=== PATIENT | female | born 1950 | race Caucasian/White ===

== ENCOUNTER 2020-06-18 07:13 | Outpatient (CLI) | payer MEDICARE, SELFPAY ==
--- NOTE | ~2020-06-18 | MM_ITS ---
EXAMINATION: MM screening sis BI w julian HISTORY: Screening TECHNIQUE: Craniocaudal and mediolateral oblique 3-D tomosynthesis images were obtained and synthetic 2-D images were generated. CAD analysis was submitted and interpreted. COMPARISON: Comparison to multiple prior studies sequentially, with oldest reviewed study dated 04/26. BREAST PARENCHYMAL COMPOSITION: There are scattered areas of fibroglandular density. FINDINGS: There is no evidence of suspicious mass, calcification, or architectural distortion to sugg est malignancy in either breast. There has been no suspicious interval change. IMPRESSION: 1. No mammographic evidence of malignancy. 2. Recommend routine screening mammography in one year. BI-RADS Category 1: Negative Reviewed, dictated and finalized at location A.
== END 2020-06-18 07:14 | disposition home or self-care (01) ==
LOC: ANHIMG 07:22
PROVIDERS: PCP Internal Medicine; Visit Provider Internal Medicine
DX: Z12.31 Encounter for screening mammogram for malignant neoplasm of breast (principal)
CPT/HCPCS: 77063; 77067

== ENCOUNTER 2021-06-18 07:59 | Outpatient (CLI) | payer MEDICARE, SELFPAY ==
--- NOTE | ~2021-06-18 | MM_ITS ---
EXAMINATION: MM screening sis BI w julian HISTORY: Screening TECHNIQUE: Craniocaudal and mediolateral oblique 3-D tomosynthesis images were obtained and synthetic 2-D images were generated. CAD analysis was submitted and interpreted. COMPARISON: Comparison to multiple prior studies sequentially, with oldest reviewed study dated 04/26. BREAST PARENCHYMAL COMPOSITION: There are scattered areas of fibroglandular density. FINDINGS: There is no evidence of suspicious mass, calcification, or architectural distortion to sugg est malignancy in either breast. There has been no suspicious interval change. IMPRESSION: 1. No mammographic evidence of malignancy. 2. Recommend routine screening mammography in one year. BI-RADS Category 1: Negative Reviewed, dictated and finalized at location A.
== END 2021-06-18 08:00 | disposition home or self-care (01) ==
LOC: ANHIMG 08:01
PROVIDERS: PCP Internal Medicine; Visit Provider Internal Medicine
DX: Z12.31 Encounter for screening mammogram for malignant neoplasm of breast (principal)
CPT/HCPCS: 77063; 77067

== ENCOUNTER 2022-06-30 09:18 | Outpatient (CLI) | payer MEDICARE, SELFPAY ==
--- NOTE | ~2022-06-30 | MM_ITS ---
EXAMINATION: MM screening sis BI w julian HISTORY: Screening mammogram TECHNIQUE: Craniocaudal and mediolateral oblique 3-D tomosynthesis images were obtained and synthetic 2-D images were generated. CAD analysis was submitted and interpreted. COMPARISON: 06/18/2021, 06/18/2020, 05/31/2019 bilateral screening mammogram examinations BREAST PARENCHYMAL COMPOSITION: There are scattered areas of fibroglandular density. FINDINGS: There is no evidence of suspicious mass, calcification, or architectural distortion to sugg est malignancy in either breast. There has been no suspicious interval change. IMPRESSION: 1. No mammographic evidence of malignancy. 2. Recommend routine screening mammography in one year. BI-RADS Category 1: Negative Reviewed, dictated and finalized at location A.
== END 2022-06-30 09:19 | disposition home or self-care (01) ==
LOC: ANHIMG 09:20
PROVIDERS: PCP Internal Medicine; Visit Provider Internal Medicine
DX: Z12.31 Encounter for screening mammogram for malignant neoplasm of breast (principal)
CPT/HCPCS: 77063; 77067

== ENCOUNTER 2023-08-17 13:09 | Outpatient (CLI) | payer MEDICARE, SELFPAY ==
--- NOTE | ~2023-08-17 | MM_ITS ---
EXAMINATION: MM screening [facility] BI w julian HISTORY: Screening mammogram TECHNIQUE: Craniocaudal and mediolateral oblique 3-D tomosynthesis images were obtained and synthetic 2-D images were generated. CAD analysis was submitted and interpreted. COMPARISON: 06/30/2022, 06/18/2021, 06/18/2020 BREAST PARENCHYMAL COMPOSITION: There are scattered areas of fibroglandular density. FINDINGS: No suspicious mass, calcification, or architectural distortion are identified in either jaime ast to suggest malignancy. There has been no suspicious interval change. IMPRESSION: 1. No mammographic evidence of malignancy. 2. Recommend routine screening mammography in one year. BI-RADS Category 1: Negative Reviewed, dictated and finalized at location A.
== END 2023-08-17 13:10 | disposition home or self-care (01) ==
PROVIDERS: PCP Internal Medicine; Visit Provider Internal Medicine
DX: Z12.31 Encounter for screening mammogram for malignant neoplasm of breast (principal)
CPT/HCPCS: 77063; 77067

== ENCOUNTER 2024-08-22 07:52 | Outpatient (CLI) | payer MEDICARE, SELFPAY ==
--- NOTE | ~2024-08-22 | MM_ITS ---
EXAMINATION: MM screening sis BI w julian HISTORY: Screening TECHNIQUE: Craniocaudal and mediolateral oblique 3-D tomosynthesis images were obtained and synthetic 2-D images were generated. CAD analysis was submitted and interpreted. COMPARISON: Comparison to multiple prior studies sequentially, with oldest reviewed study dated 07/2018. BREAST PARENCHYMAL COMPOSITION: Not dense: There are scattered areas of fibroglandular density. FINDINGS: There is a new focal asymmetry in the subareolar location of the left breast on CC view. Th e right breast is stable. IMPRESSION: 1. New focal left breast asymmetry. 2. Additional mammographic views and possible breast ultrasound are recommended. BI-RADS Category 0: Incomplete: Needs additional imaging evaluation. Reviewed, dictated and finalized at location B. IMPRESSION: 1. New focal left breast asymmetry. 2. Additional mammographic views and possible breast ultrasound are recommended . BI-RADS Category 0: Incomplete: Needs additional imaging evaluation.
== END 2024-08-22 07:53 | disposition home or self-care (01) ==
LOC: ANHIMG 07:53
PROVIDERS: PCP Internal Medicine; Visit Provider Internal Medicine
DX: Z12.31 Encounter for screening mammogram for malignant neoplasm of breast (principal); R92.8 Other abnormal and inconclusive findings on diagnostic imaging of breast
CPT/HCPCS: 77063; 77067

== ENCOUNTER 2024-09-11 10:11 | Outpatient (CLI) | payer MEDICARE, SELFPAY ==
--- NOTE | ~2024-09-11 | MM_ITS ---
EXAMINATION: MM diagnostic sis LT w julian HISTORY: Left breast asymmetry TECHNIQUE: Additional 3-D tomosynthesis images of the left breast were performed and synthetic 2-D im ages were generated. CAD analysis was submitted and interpreted. COMPARISON: 08/22/2024 BREAST PARENCHYMAL COMPOSITION:Not Dense. There are scattered areas of fibroglandular density. FINDINGS: The asymmetry effaces with spot compression. No persistent mass lesion or distortion seen. No suspicious microcalcification. IMPRESSION: No mammographic evidence for malignancy. BI-RADS Category 1: Negative Reviewed, dictated and finalized at location .
== END 2024-09-11 10:12 | disposition home or self-care (01) ==
LOC: ANHIMG 10:13
PROVIDERS: PCP Internal Medicine; Visit Provider Internal Medicine
DX: R92.8 Other abnormal and inconclusive findings on diagnostic imaging of breast (principal)
CPT/HCPCS: 77061; 77065; G0279

== ENCOUNTER 2025-08-27 07:44 | Outpatient (CLI) | payer MEDICARE, SELFPAY ==
--- NOTE | ~2025-08-27 | MM_ITS ---
EXAMINATION: MM screening sis BI w julian HISTORY: Screening TECHNIQUE: Craniocaudal and mediolateral oblique 3-D tomosynthesis images were obtained and synthetic 2-D images were generated. CAD analysis was submitted and interpreted. COMPARISON: 08/17/2023 BREAST PARENCHYMAL COMPOSITION: The breasts are heterogeneously dense, which may obscure small masses. FINDINGS: There is no evidence of suspicious mass, calcification, or architectural distortion to suggest malignancy. There has been no suspicious interval change. IMPRESSION: 1. No mammographic evidence of malignancy. Recommend routine screening mammography in one year. BI-RADS Category 2: Benign finding(s) Reviewed, dictated and finalized at location Q. IMPRESSION: 1. No mammographic evidence of malignancy. Recommend routine screening mammogra phy in one year. BI-RADS Category 2: Benign finding(s)
--- OUTSIDE RECORDS SUMMARY | 2025-08-27 07:49 | XMS_ITS | Encounter Summary ---
Author Organization [facility] Healthcare Address [address] [place] [address] Care Team Providers Care Pool Nurse Name Role Phone Aziza Benton MD Primary Care Provider + [phone] Reji Sarabia OD Unavailable [phone] Samantha Kyle MD Unavailable [phone] Mike Garcia MD Unavailable Domingo Diana MD Unavailable [phone] Parisa Lyn MD Unavailable [phone] Encounter Details Date Type Department Care Team (Late st Contact Info) Description 04/05/2025 Orders Only [facility] Health Information Management [address] [place] [id number] Scanning, Provider Social History Tobacco Use Types Packs/Day Years Used Date Smoking Tobacco: Never Cigarettes Smokeless Tobacco: Never Alcohol Use Standard Drinks/Week Comments Not Currently 0 (1 standard drink = 0.6 oz pur e alcohol) Social Connection and Isolation Panel Answer Date Recorded In a typical week, how many times do you talk on the phone with family, friends, or neighbors? More than three times a week 03/10/2022 How often do you get togethe r with friends or relatives? More than three times a week 03/10/2022 How often do you attend chur or amish services? More than 4 times per year 03/10/2022 Do you belong to any clubs o r organizations such as catholic groups, unions, fraternal or athletic groups, or school groups? No 03/10/2022 How often do you attend meet ings of the clubs or organizations you belong to? Never 03/10/2022 Are you , , di vorced, , never , or living with a partner? 03/10/2022 AUDIT-C Answer Date Recorded Frequency of Alcohol Consumption Not on file 08/17/2024 Q2: How many drinks containi ng alcohol do you have on a typical day when you are drinking? 1 or 2 08/17/2024 Q3: How often do you have si x or more drinks on one occasion? Less than monthly 08/17/2024 Overall Financial Resource Strain (CARDIA) Answe r Date Recorded How hard is it for you to pa y for the very basics like food, housing, medical care, and heating? Not hard at all 03/10/2022 PHQ-2 Answer Date Recorded PHQ-2 Total Score (If total score is 3 or more points, staff should administer the PHQ-9) 0 10/04/2024 PRAPARE - Transportation Answer Date Re corded In the past 12 months, has l ack of transportation kept you from medical appointments or from getting medications? No 02/14 In the past 12 months, has l ack of transportation kept you from meetings, work, or from getting things needed for daily living? No 03/10/2022 Personal Safety Answer Date Recorded Have you ever been in or are you currently in a harmful physical or emotional relationship or is someone making you feel afraid or unsafe? Denies 11/30/2023 Comments No Sex and Gender Information Value Date Recorded Sex Assigned at Not on file Legal Sex Female 7:15 PM CDT Gender Identity Not on file Sexual Orientation Not on file documented as of this encounter Plan of Treatment Not on file documented as of this encounter Procedures Procedure Name Priority Date/Time Associated Diagnosis Comments SCAN - LABS 04/05/2025 documented in this encounter Results * SCAN - LABS (04/05/2025) us Provider Scanning Final Result documented in this encounter Visit Diagnoses Not on filedocumented in this encounter Care Teams Pool Nurse Relationship Specialty Start Date End Date Aziza Benton MD [address] [place] [id number] PCP - General Internal Medicine 02/07/19 Reji Sarabia OD [address] [place] [id number] Optometry 07/20/19 [place] [id number] [address] [place] [address] Surgeon Colon and Rectal Surgery 03/13/22 [place] [id number] [address] [facility] [address] [place] [address] Consulting Physician Gastroenterology 09/14/23 [place] [id number] [address] [place] [address] Consulting Physician Oncology 09/14/23 Parisa Lyn MD [address] [place] [id number] Consulting Physician Obstetrics and Gynecology 09/14/23 documented as of this encounter
--- OUTSIDE RECORDS SUMMARY | 2025-08-27 07:49 | XMS_ITS | Clinical Summary ---
Author Organization [facility] Address [address] [place] [id number] Care Team Providers Care Turbine Attendant Name Role Phone Unavailable Primary Care Provider Unavailabl e Social History Tobacco Use Types Packs/Day Years Used Date Smoking Tobacco: Never Assessed Comments Unknown Sex and Gender Information Value Date Recorded Sex Assigned at Not on file Legal Sex Female 7:06 PM CDT Gender Identity Not on file Sexual Orientation Not on file Plan of Treatment Health Maintenance Due Date Last Done Comments Colorectal Cancer Screening Colonoscopy (10 Years) 1952 Hepatitis C 1970 DTaP, Tdap and Td Vaccines ( 1 - Tdap) 1971 Mammogram Screening 1992 Pneumococcal Vaccine: 50+ Ye ars (1 of 1 - PCV) 2002 Zoster Vaccines (1 of 2) 2002 Dexa Scan (General) 2017 COVID-19 Vaccine ( - 2023-2 5 season) 2025 Influenza Adult (#1) 2025 RSV Immunization or 60+ Years (1 - 1-dose 75+ series) 2027 Meningococcal B Vaccine Aged Out No l onger eligible based on patient's age to complete this topic Meningococcal Vaccine Aged Out No erica mitchell eligible based on patient's age to complete this topic RSV Immunizations Under 20 Months Aged Out No longer eligible based on patient's age to complete this topic
--- OUTSIDE RECORDS SUMMARY | 2025-08-27 07:50 | XMS_ITS | Clinical Summary ---
Author Organization [facility] at the [facility] Office Center Address [address] [place] [address] Care Team Providers Care Conciliation Court Judge Name Role Phone Rocio Benton MD Primary Care Provider + [phone] Reji Sarabia OD Unavailable [phone] Samantha Kyle MD Unavailable [phone] Mike Garcia MD Unavailable Domingo Diana MD Unavailable [phone] Parisa Lyn MD Unavailable Allergies Active Allergy Reactions Criticality Noted Date Comments Iodine Rash Medium 07/18/2019 rash Iodinated Contrast Media Rash Medium 03/02/2022 Sulfa (Sulfonamide Antibiotics) Rash Medium 05/16 rash Medications calcium carb/vitamin D3/vit K1 (VIACTIV ORAL) daily Activ e cholecalciferol (VITAMIN D-3) 2000 unit capsule 1 capsule (2,000 Units total) daily Active multivitamin tablet,chewable Take 1 tablet by mouth daily Active ascorbic acid (VITAMIN C) 1,000 mg tablet Take 1 tablet (1,000 mg total) by mouth daily Active lisinopril-hydroC HLOROthiazide (ZESTORETIC) 10-12.5 mg per tabletIndications :Essential hypertension Take 1 tablet by mouth daily 90 tablet 3 5 Active Active Problems Problem Noted Date Diagnosed Date Asymptomatic varicose veins of both lower extrem ities 03/04/2023 Assessment & Plan (03/04/2023 8:52 AM CDT): Wear compression stockings regularly for prevention Keep walking regularly Status post partial colectomy 09/30/2022 Overview (03/16/2024): 2021 polypoid lesion of the colon. Around the appendiceal orifice. Status post right- sided hemicolectomy. Following up with Oncology. Doing well. 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 A CT scan was done and it showed within the cecum, there is a apparent 2.7 x 3.2 cm mass, which appears to extend into the proximal appendix. Right lower quadrant lymphadenopathy is demonstrated with largest lymph node measuring approximately 1.2 cm and also an Enhancing 1.9 x 1.0 cm right hepatic lobe lesion may represent focus of metastatic disease. On 03/09/22 she underwent a right segmental colectomy and pathology was positive for marginal zone lymphoma, involving the colon and pericolonic lymph node. Dr Cindy Hebert, GI polypoid lesion of the colon. Around the appendiceal orifice. Status post right- sided hemicolectomy. Following up with Oncology. Doing well. Assessment & Plan (03/17/2024 8:50 AM CDT): S/p lap colectomy In Cecum, also appendectomy done at same time 01/07/22 for MALT NH Lymphoma Dr Mohan No chemo needed per Oncology Dr Giang (moved away) Dong well Cont under Oncology, Dr Domingo Diana Assessment & Plan (03/16/2024 9:34 PM CDT): >>ASSESSMENT AND PLAN FOR COLONIC MASS WRITTEN ON 03/16/2024 9:32 PM BY ROCIO BENTON MD >>ASSESSMENT AND PLAN FOR LESION OF COLON WRITTEN ON 01/21/2022 11:14 AM BY LORA HEBERT MD -polypoid lesion of the colon. Around the appendiceal orifice. Discuss the pathology report with her in detail. Per the pathologist here at [facility], it was noted to be suspicious of B-cell lymphoma. It was further since a [facility] for expert opinion, where it was assessed to be mixed infiltrate. I did discuss it with the pathologist on multiple occasions in detail. Per per the combined consents is we will obtain a CT chest abdomen pelvis for evaluation for possibility lymphoid tumor. I will see her in 6 months and schedule her for repeat colonoscopy for re- evaluation of the lesion if the CT chest abdomen pelvis are unremarkable. Assessment & Plan (03/16/2024 9:34 PM CDT): >>ASSESSMENT AND PLAN FOR COLONIC MASS WRITTEN ON 09/30/2022 11:30 AM BY LORA HEBERT MD -polypoid lesion of the colon. Around the appendiceal orifice. Status post right-sided hemicolectomy. Following up with Oncology. Doing well. Counseled on effects of right hemicolectomy. All her questions answered to her satisfaction. I will see her in 6 months and schedule her for repeat colonoscopy for follow- up. Assessment & Plan (09/14/2023 8:41 AM CDT): Stable S/p lap colectomy In Cecum, also appendectomy done at same time 01/07/[address] Mohan No chemo needed per Oncology Dr Giang She underwent colonoscopy on and biopsy from a cecal mass (3.5 cm) was suspicious for a B-Cell Lymphoma. A CT scan was done and it showed within the cecum, there is a apparent 2.7 x 3.2 cm mass, which appears to extend into the proximal appendix. Right lower quadrant lymphadenopathy is demonstrated with largest lymph node measuring approximately 1.2 cm and also an Enhancing 1.9 x 1.0 cm right hepatic lobe lesion may represent focus of metastatic disease. On 03/09/22 she underwent a right segmental colectomy and pathology was positive for marginal zone lymphoma, involving the colon and pericolonic lymph node. BMI 28.0-28.9,adult 02/19/2021 Assessment & Plan (03/04/2023 8:52 AM CDT): Cont wt loss and walking Cont healthy diet and lifestyle Assessment & Plan (08/27/2021 10:37 AM CDT): Intermittent fasting Assessment & Plan (02/19/2021 10:16 AM CDT): Overweight Work on weight loss Family history of thyroid disease 02/19/2021 Overview (02/19/2021): 2 dtrs on thyroid meds Assessment & Plan (02/19/2021 10:20 AM CDT): Monitor TSH levels once yrly Both dtrs have thyroid disease Acute pain of right knee 08/21/2020 Assessment & Plan (10/11/2024 8:56 AM FRONTEND ENGINEER): New and worsening Might need PT if not better Start with Knee exercises Assessment & Plan (08/21/2020 1:41 PM CDT): Knee strengthening exercises, printed Family history of ovarian cancer 08/21/2020 Overview (08/21/2020): sister Assessment & Plan (08/21/2020 1:52 PM CDT): Patient to inquire with her sister's [employer] Medicare annual wellness visit, subsequent 07/20 Assessment & Plan (10/11/2024 8:40 AM FRONTEND ENGINEER): Reviewed previous labs and diagnostic test results. Chronic medical problems evaluated and management plans discussed with the patient. Prescription medications, supplements, vitamins and immunizations reviewed. Wear seatbelts. Use sunscreen. Discussed healthy diet and disease prevention. Recommend moving towards a plant based diet. Discussed importance of scheduling recommended screening tests. Discussed importance of regular physical examinations for health maintenance. Assessment & Plan (09/14/2023 8:42 AM CDT): Patient at risk for falls due to age and co morbidities. Fall prevention discussed c patient in detail. Exercises for balance and coordination, keep LE muslces toned and strong. Assessment & Plan (08/27/2022 9:59 AM CDT): Patient at risk for falls due to age and co morbidities. Fall prevention discussed c patient in detail. Exercises for balance and coordination, keep LE muslces toned and strong. Assessment & Plan (08/27/2021 10:09 AM CDT): Reviewed previous labs and diagnostic test results. Chronic medical problems evaluated and management plans discussed with the patient. Prescription medications, supplements, vitamins and immunizations reviewed. Wear seatbelts. Use sunscreen. Discussed healthy diet and disease prevention. Recommend moving towards a plant based diet. Discussed importance of scheduling recommended screening tests. Discussed importance of regular physical examinations for health maintenance. Discussed importance of a living will, advanced directives and establishing or updating healthcare power of environmental attorney document and providing our office with a copy. Assessment & Plan (02/19/2021 10:10 AM CDT): Overweight Work on wt loss Avoid sugar or sugar substitutes Assessment & Plan (08/21/2020 12:51 PM CDT): Wear sunscreen with SPF over 50 while outdoors. Wear sun protective head wear and clothing if planning to stay outdoors exposed to the direct sunlight for extended hours. Wear seatbelts while in a vehicle. Do not TEXT and DRIVE Do not DRINK and DRIVE. Drink responsibly Follow a heart healthy diet and lifestyle. Consume 5-7 servings of fruits and vegetables a day.. Such as the Mediterranean Diet. Maintain/attain normal body weight. Exercise regularly, minimum 20 mins 3 days a week to reduce cardiovascular healthy. Maintain good sleep schedule and sleep habits I recommend that all patients follow a diet that is high in fruits and vegetables and low in processed foods such as sugar and foods that are made with white flour. I recommend using beneficial fats such as olive oil, nuts, seeds and berries and avoiding saturated animal fats. Please stay physically active to the extent that you are physically able to. Test results: if you have not received communication about test results within 7 days of the test being performed, please contact the office. I strongly encourage Pricing Assistanthart sign ups. It can facilitate communication flow. Please contact the office for instructions on signing up. Consider getting Shingrix (shingles vaccine). This is a 2-shot series with each injection given 2-6 months apart. You can obtain the vaccine at most major pharmacies without a prescription Assessment & Plan (07/20/2019 11:52 AM CDT): Get a living will and establish health care POA Wear sunscreen while outdoors. Wear seatbelts while in a vehicle. Do not text and drive. Follow a heart healthy diet and lifestyle. Consume 5-7 servings of fruits and vegetables a day. Maintain/attain normal body weight. Maintain good sleep schedule and sleep habits. I recommend that all patients follow a diet that is high in fruits and vegetables and low in processed foods such as sugar and foods that are made with white flour. I recommend using beneficial fats such as olive oil, nuts, seeds and berries and avoiding saturated animal fats. Please stay physically active to the extent that you are able. Test results: if you have not received communication about test results within 7 days of the test being performed, please contact the office. Consider getting Shingrix (shingles vaccine). This is a 2-shot series with each injection given 2-6 months apart. You can obtain the vaccine at most major pharmacies without a prescription Risk for falls 07/20/2019 Assessment & Plan (10/11/2024 8:40 AM FRONTEND ENGINEER): Patient at risk for falls due to age and co morbidities. Fall prevention discussed c patient in detail. Exercises for balance and coordination, keep LE muslces toned and strong. Assessment & Plan (09/14/2023 8:42 AM CDT): Patient at risk for falls due to age and co morbidities. Fall prevention discussed c patient in detail. Exercises for balance and coordination, keep LE muslces toned and strong. Assessment & Plan (08/27/2022 10:00 AM CDT): Patient at risk for falls due to age and co morbidities. Fall prevention discussed c patient in detail. Exercises for balance and coordination, keep LE muslces toned and strong. Assessment & Plan (08/27/2021 10:09 AM CDT): Patient at risk for falls due to age and co morbidities. Fall prevention discussed c patient in detail. Exercises for balance and coordination, keep LE muslces toned and strong. Assessment & Plan (08/21/2020 1:40 PM CDT): Patient at risk for falls due to age and co morbidities. Fall prevention discussed c patient in detail. Exercises for balance and coordination, keep LE muslces toned and strong. Core strengthening exercises Assessment & Plan (07/20/2019 11:30 AM CDT): Patient at risk for falls due to age and co morbidities. Fall prevention discussed c patient in detail. Exercises for balance and coordination, keep LE muslces toned and strong. Abnormal glucose 07/20/2019 Overview (10/11/2024): A1c 5.22 January 2020 a1c 6.January a1c 5.23 Aug 2022 a1c 5.19 Feb 2023 A1c 5.21 Aug 2023 A1c 6.15 Mar 2024 A1c 6.15 Sep 2024 Assessment & Plan (10/11/2024 8:51 AM FRONTEND ENGINEER): Trying to make improvements with walking and better food choices At risk for Dm A1c remains in pre dm range Lose more weight Ff diabetic diet Cont to trend A1c 5.22 January 2020 a1c 6.January a1c 5.23 Aug 2022 a1c 5.19 Feb 2023 A1c 5.21 Aug 2023 A1c 6.15 Mar 2024 A1c 6.15 Sep 2024 Stable, still in pre DM, at risk Assessment & Plan (03/16/2024 9:30 PM CDT): Trying to make improvements with walking and better food choices At risk for Dm A1c remains in pre dm range Lose more weight Ff diabetic diet Cont to trend A1c 5.22 January 2020 a1c 6.January a1c 5.23 Aug 2022 a1c 5.19 Feb 2023 A1c 5.21 Aug 2023 A1c 6.15 Mar 2024 Assessment & Plan (09/14/2023 9:08 AM CDT): Improving with walking and better food choices At risk for Dm but improving Lose some wt Ff diabetic diet A1c 5.22 January 2020 a1c 6.January a1c 5.23 Aug 2022 a1c 5.19 Feb 2023 A1c 5.21 Aug 2023 Assessment & Plan (03/04/2023 8:44 AM CDT): Improving with walking and better food choices A1c 5.22 January 2020 a1c 6.January a1c 5.23 Aug 2022 a1c 5.19 Feb 2023 Assessment & Plan (08/27/2022 10:02 AM CDT): Improving Cont to walk and change lifestyle Avoid sugars in diet Follow low carbohydrate high-protein diet. Avoid eating sugars. Patient should read labels and make sure there are no ingredients that contain added sugar, or fructose, sucrose or anything ends in OSE. Exercise regularly, limit food portions. Follow proper serving sizes. Work on add'l weight loss. Assessment & Plan (02/19/2022 11:17 AM CDT): A1c 5.22 January 2020 a1c 6.January Ff low sodium diet Assessment & Plan (08/27/2021 10:40 AM CDT): bs are better Ff no sugar low carb diet Intermittent fasting Get back into walking routine Assessment & Plan (02/19/2021 10:13 AM CDT): Follow low carbohydrate high-protein diet. Avoid eating sugars. Patient should read labels and make sure there are no ingredients that contain added sugar, or fructose, sucrose or anything ends in OSE. Exercise regularly, limit food portions. Follow proper serving sizes. Work on add'l weight loss. Will Monitor a1c on a 3-6mos basis. Assessment & Plan (08/21/2020 12:52 PM CDT): Ff low sugar diet. Cont to work on weight loss. Exercise on a regular basis. Assessment & Plan (03/13/2020 3:29 PM CDT): A1c is down from 6.1 the 5.9. Weight is down 12 lb. This is much improved. Ff low sugar diet. Work on weight loss. Exercise on a regular basis. Avoid sugars from diet Assessment & Plan (07/20/2019 11:33 AM CDT): Follow low carbohydrate high-protein diet. Avoid eating sugars. Patient should read labels and make sure there are no ingredients that contain added sugar, or fructose, sucrose or anything ends in OSE. Exercise regularly, limit food portions. Follow proper serving sizes. Work on add'l weight loss. Will Monitor a1c in 6mos. History of colon polyps 07/20/2019 Overview (03/16/2024): Ff up Colonoscopy November 2023, Dr Garcia, 2 polyps removed in the descending colon, follow-up in 5 years colonoscopy on Colonoscopy Dr Kapil Leal, 4mm polyp prox'l asc colon Colonoscopy Dr Cindy Hebert, polyp, biopsied, poor prep, Bx c/w MALT (NHL) of the CECUM polypoid lesion of the colon. Around the appendiceal orifice. Status post right-sided hemicolectomy. Following up with Oncology. Doing well. Assessment & Plan (09/14/2023 8:41 AM CDT): colonoscopy on Up to date GI following Assessment & Plan (08/21/2020 12:51 PM CDT): Colonoscopy due with dr Leal, was due 5 yrs after 2010 Assessment & Plan (07/20/2019 12:06 PM CDT): Colonoscopy due with dr Leal, was due 5 yrs after 2010 Essential hypertension 06/03/2016 Overview (08/21/2020): Patient declines statin therapy for cv risk reduction Assessment & Plan (10/11/2024 8:48 AM FRONTEND ENGINEER): Follow low sodium DASH Diet. Exercise regularly for CV health and weight loss. Continue Rx Lisinopril-hctz medication. BP is controlled and stable. Assessment & Plan (03/16/2024 9:27 PM CDT): Follow low sodium DASH Diet. Exercise regularly for CV health and weight loss. Continue Rx Lisinopril-hctz medication. BP is controlled and stable. Assessment & Plan (09/14/2023 8:39 AM CDT): Follow low sodium DASH Diet. Exercise regularly for CV health and weight loss. Continue Rx medication. BP is controlled and stable. Assessment & Plan (03/04/2023 8:41 AM CDT): Follow low sodium DASH Diet. Exercise regularly for CV health and weight loss. Achieve or Maintain normal BMI/Weight. Take medications as prescribed. Report if having problems with the medication or if develops Chest pains. Monitor BP occly and record. Report if BP consistently over 160/90 or under 90/60 and dizzy and LH. Continue Rx medication. BP is controlled and stable. Assessment & Plan (08/27/2022 10:00 AM CDT): Follow low sodium DASH Diet. Exercise regularly for CV health and weight loss. Achieve or Maintain normal BMI/Weight. Take medications as prescribed. Report if having problems with the medication or if develops Chest pains. Monitor BP occly and record. Report if BP consistently over 160/90 or under 90/60 and dizzy and LH. BP is controlled and stable. Assessment & Plan (02/19/2022 11:16 AM CDT): bp controlled Cont same regimen Ff low sodium diet Assessment & Plan (08/27/2021 10:40 AM CDT): Follow low sodium DASH Diet. Exercise regularly for CV health and weight loss. Achieve or Maintain normal BMI/Weight. Take medications as prescribed. Report if having problems with the medication or if develops Chest pains. Monitor BP occly and record. Report if BP consistently over 160/90 or under 90/60 and dizzy and LH. BP is controlled and stable. Assessment & Plan (02/19/2021 10:13 AM CDT): bp controlled Follow low sodium diet Remain active No more Headaches since on BP pill Assessment & Plan (08/21/2020 1:54 PM CDT): Controlled. Ff low sodium diet The 10-year ASCVD risk score (Eun VÁZQUEZ Jr., et al., 2013) is: 7.7% Values used to calculate the score: Age: 70 years Sex: Female Is Non- : No Diabetic: No Tobacco smoker: No Systolic Blood Pressure: 112 mmHg Is BP treated: Yes HDL Cholesterol: 63 mg/dL Total Cholesterol: 206 mg/dL Patient not interested at this time on statin therapy Assessment & Plan (03/13/2020 3:29 PM CDT): Follow low sodium DASH Diet. Exercise regularly for CV health and weight loss. Achieve or Maintain normal BMI/Weight. Take medications as prescribed. Report if having problems with the medication or if develops Chest pains. Monitor BP occly and record. Report if BP consistently over 160/90 or under 90/60 and dizzy and LH. With 12 lb weight loss and improved diet patient is at risk for low blood pressure. Encourage patient to buy a blood pressure cuff and monitor blood pressures. Report to us if she gets low blood pressures or feels episodes of dizziness and lightheadedness with low blood pressure. BP is controlled and stable. Assessment & Plan (07/20/2019 11:47 AM CDT): Follow low sodium DASH Diet. Exercise regularly for CV health and weight loss. Achieve or Maintain normal BMI/Weight. Take medications as prescribed. Report if having porblems with the medication or if develops Chest pains. Monitor BP occly and record. Report if BP consistently over 160/90 or under 90/60 and dizzy and LH. BP is controlled and stable. Chol level needs improvement, ldl needs to get under 100. Eat less dairy products. Alternate with walking 15 mins after each meal 3x a day. Bmp in 6mos Resolved Problems Problem Noted Date Diagnosed Date Resolved Date Postmenopausal bleeding 12/30/2021 05/0 12/2023 Overview (12/30/2021): Added automatically from request for surgery [id number] Immunizations Immunization Administration Dates Next Due Influenza, Quadrivalent, Hig h Dose, Preservative Free, Intrr 09/14/2023,08/27/2022,08/27/2021,08/21 Influenza, Quadrivalent, Spl it, Intramuscular 09/11/2019 Influenza, Quadrivalent, Spl it, Preservative Free, Intramuscular 09/11/2019,09/05/2018,10/01/2017 Influenza, Trivalent, High D ose, Split, Preservative Free, Intramuscular 08/24/2024 Influenza, Trivalent, IM (MDV) 7,07/31/2014,09/29/2013,10/07 Influenza, Trivalent, Preser vative Free, Intramuscular 08/26/2016,09/21/2015 Moderna SARS-CoV-2 Monovalen t Vaccination (12+ YRS) 02/10/2021,02/10/2021,01/10/2021,01/10 Pneumococcal Conjugate PCV 13 07/15/2017 Pneumococcal Polysaccharide PPV23 07/20/2019 ZOSTER LIVE 07/15/2017,05/01/2016 ZOSTER Recombinant 12/13/2023,09/11/2023 Surgical History Surgery Date Site/Laterality Comments TONSILLECTOMY COLONOSCOPY 01/07/2022 Dr Cindy Hebert OVARIAN CYST DRAINAGE 11/15/1988 - 11/14/1989 HYSTEROSCOPY W/ ENDOMETRIAL ABLATION 02/25/2022 D & C, Dr Lyn APPENDECTOMY 03/09/2022 Dr Mohan COLON SURGERY 03/09/2022 Dr Kyle, partial Colectomy for MALT Appendix Medical History Medical History Date Comments Seborrheic dermatitis Polyp of colon Hypertension Hx of carpal tunnel syndrome Hx of obesity Ovarian cyst PONV (postoperative nausea and vomiting) Female bladder prolapse Lymphoma (HCC) Varicella Family History Medical History Relation Name Comments Hypothyroidism Daughter 1 Inna Hypothyroidism Daughter 2 Miranda Hypertension Father Wm Lymphoma Mother Ovarian cancer Sister Relation Name Status Comments Daughter 1 Inna Alive Daughter 2 Miranda Alive Father Wm Mother Sister Alive Social History Tobacco Use Types Packs/Day Years [...] How often do you attend chur or scientology services? More than 4 times per year 03/10/2022 Do you belong to any clubs o r organizations such as restoration groups, unions, fraternal or athletic groups, or [...] points, staff should administer the PHQ-9) 0 04/19/2025 PRAPARE - Transportation Answer Date Re corded [...] on file Sexual Orientation Not on file Obstetrics History Para Term AB IAB SAB Ectopic Multiple Livin g Live Births 2 2 2 0 0 2 Date Outcome GA Total Labor Labor/2nd/3rd Weight Sex Type Anes PTL Mirian A1 A5 Name Clin Term Term Last Filed Vital Signs Vital Sign Reading Time Taken Comments Blood Pressure 122/70 04/19/2025 3:28 PM CDT Pulse 70 04/19/2025 3:28 PM CDT Temperature 36.4 C (97.6 F) 04/19/2025 3:28 PM CDT Respiratory Rate 18 08/17/2024 9:54 AM CDT Oxygen Saturation 96% 04/19/2025 3:28 PM CDT Inhaled Oxygen Concentration - - Weight 82.3 kg (181 lb 6.4 oz) 04/19/2025 3:28 P M CDT Height 167.6 cm (5' 5.98) 04/19/2025 3:28 PM CD T Body Mass Index 29.29 04/19/2025 3:28 PM CDT Plan of Treatment Health Maintenance Due Date Last Done Comments Hepatitis B Screening 1968 Covid-19 Vaccine (2024-12 6 season) 2025 11/30/2021, 02/10/2021, 02/10/2021, Additional history exists Influenza Vaccine (#1) 2025 , 09/14/2023, 08/27/2022, Additional history exists Breast Cancer Screening-Mammogram 08/22/2025 08/22/2024, 08/22/2024, 08/17/2023, Additional history exists Fall Risk Assessment 10/11/2025 10/11/2024, 03/17/2024, 11/30/2023, Additional history exists Well Visit 65+ 10/11/2025 10/11/2024, 08/17, 08/27/2022, Additional history exists Depression Screening 04/19/2026 04/19/2025, 10/11/2024, 03/17/2024, Additional history exists Osteoporosis Screening-Bone Density Scan 04/09/2028 04/09/2023, 04/03/2021 Colon Cancer Screening-Colonoscopy 11/30/2028 11/30/2023, 01/07/2022, 01/07/2022, Additional history exists Pneumococcal vaccine 65+ Completed 07/20/2019, 06/17 Hepatitis C Screening Completed 04/27/2022 , 01/29/2020, 01/29/2020 Colon Cancer Screening-CT Colonography Discontinued 11/30/2023, 01/07/2022, 01/07/2022, Additional history exists Colon Cancer Screening-DNA Stool Discontinued 11/30/2023, 01/07/2022, 01/07/2022, Additional history exists Colon Cancer Screening-FIT Discontinued 11/30, 01/07/2022, 01/07/2022, Additional history exists Colon Cancer Screening-Sigmoidoscopy Discontinued 11/30/2023, 01/07/2022, 01/07/2022, Additional history exists Zoster Vaccine Completed 12/13/2023, 08/16, 07/15/2017, Additional history exists DTaP/Tdap/Td Vaccine Discontinued Procedures Procedure Name Priority Date/Time Associated Diagnosis Comments HM MAMMOGRAPHY Routine 08/22/2024 4:52 PM CDT COLONOSCOPY 11/30/2023 9:29 AM FRONTEND ENGINEER DEXA AXIAL SKELETON BONE DENSITY 1 OR MORE SITES Schedule Routine, Read Routine (OP Routine) 04/09/2023 11:10 AM CDT Post-menopausal Age-related osteoporosis without current pathological fracture HEPATITIS PANEL, ACUTE Routine 04/27/2022 1:15 PM CDT Marginal zone lymphoma (HCC) from Last 3 Months or Most Recently Relevant to Health Maintenance Results * HM MAMMOGRAPHY (08/22/2024 4:52 PM CDT) Historical Provider MD HEALTH MAINTENANCE Final Result * COLONOSCOPY (11/30/2023 9:29 AM FRONTEND ENGINEER) Anatomical Region Laterality Modality Other Narrative Procedure Note Mike Garcia MD - 11/30/2023 9:29 AM CST [facility] Endoscopy Lab Patient Name: Didi Ronquillo Procedure Date: 11/30/2023 9:29 AM Date of : 1950 Admit Type: Outpatient Age: 73 Gender: Female Note Status: Finalized Attending MD: Mike Garcia M.D. Procedure Date: 11/30/2023 Procedure: Colonoscopy Indications: Screening for colorectal malignant neoplasm, Last colonoscopy: December 2021 Providers: Mike Garcia M.D., Esther Sanderson, DRUM SANDER (Anesthesia Staff), Ailyn Frey RN, Iveth Zurita, Linux Network Systems Administrator Referring MD: Rocio Benton M.D. Medicines: Monitored Anesthesia Care Complications: No immediate complications. Estimated Blood Loss: Estimated blood loss: none. Procedure: Pre-Anesthesia Assessment: - Airway Examination: normal oropharyngeal airwayand neck mobility. - Respiratory Examination: clear to auscultation. - ASA Grade Assessment: III - A patient with severe systemic disease. - After reviewing the risks and benefits, thepatient was deemed in satisfactory condition to undergo the procedure. - The risks and benefits of the procedure and the sedation options and risks were discussed with the patient. All questions were answered and informed consent was obtained. After I obtained informed consent, the scope was passed under direct vision. Throughout theprocedure, the patient's blood pressure, pulse, and oxygen saturations were monitored continuously. The scopewas passed under direct vision. The Colonoscope was introduced through the anus and advanced to the the ileocolonic anastomosis. The colonoscopy wasperformed with ease. The patient tolerated the procedurewell. The quality of the bowel preparation was good. The bowel preparation used was Clenpiq via split dose instruction. Bowel prep was administered using asplit dose. Findings: The perianal and digital rectal examinations were normal. Two sessile polyps were found in the descending colon. The polypswere 2 to 3 mm in size. These polyps were removed with a jumbo cold forceps. Resection and retrieval were complete. Estimated blood loss: none. The retroflexed view of the distal rectum and anal verge was normaland showed no anal or rectal abnormalities. The anastomosis appeared normal. Impression: - Two 2 to 3 mm polyps in the descending colon, removed with a jumbo cold forceps. Resected and retrieved. - The distal rectum and anal verge are normal on retroflexion view. Recommendation: - Discharge patient to home (ambulatory). - Await pathology results. - Repeat colonoscopy in 5 years for surveillance. Diagnosis Code(s): --- Professional --- Z12.11, Encounter for screening for malignantneoplasm of colon D12.4, Benign neoplasm of descending colon Electronically signed by Mike Garcia MD Mike Garcia M.D. 11/30/2023 9:58:26 AM Number of Addenda: 0 Note Initiated On: 11/30/2023 9:29 AM us Mike Garcia MD ENDOSCOPY PROCEDURES Final Resul t * Dexa Axial Skeleton Bone Density 1 or 2 Site (04/09/2023 11:10 AM CDT) Anatomical Region Laterality Modality Body N/A Mammography 04/10/2023 10:2 8 AM CDT Narrative 04/10/2023 10:29 AM CDT EXAM DESCRIPTION: DEXA AXIAL SKELETON BONE DENSITY 1 OR MORE SITES REASON FOR STUDY: 73 y/o year old F with given history of screening. 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 LEFT HIP: Total BMD is 0.920 g/cm2 T-score is -0.2 This is a 0.4% increase in comparison to prior exam which is not statistically significant. Femoral neck BMD is 0.782 g/cm2 T-score is -0.6 FRAX: FRAX not reported due to T-scores of hip, femoral neck and/or spine being at or above -1.0 (Normal). IMPRESSION: Normal bone mass REFERENCE: Bone mineral density: Normal (T-score above or = -1.0) Low bone mass (T-score between -1.0 and -2.5) replaces the previously used term osteopenia Osteoporosis (T-score = or below -2.5) Medical evaluation for secondary causes of low bone mineral density may be appropriate. FRAX is a World Health Organization validated fracture risk assessment tool that calculates a person's 10 year probability of a major osteoporosis related fracture and hip fracture. According to the National Osteoporosis Foundation guidelines, postmenopausal women and men age 50 or older with low bone mass and a 10 year probability of a major osteoporosis related fracture = or greater than 20% or a 10 year probability of a hip fracture = or greater than 3% should be considered for treatment. For further information, including treatment recommendations, please refer to the 2019 ISCD Official Positions (http://www.iscd.org) and the NOF's Clinician's Guide to Prevention and Treatment of Osteoporosis (http://www.nof.org/professionals/clinical-guidelines) THIS IS AN ELECTRONICALLY VERIFIED FINAL REPORT 04/10/2023 10:29 AM - Electronically signed by Luisa Mendoza M.D. TW: TW Report ID: [id number] Reading Location: [place] [address] Procedure Note Luisa Mendoza MD - 04/10/2023 EXAM DESCRIPTION: DEXA AXIAL SKELETON BONE DENSITY 1 OR MORE SITES REASON FOR STUDY: 73 y/o year old F with given history of screening. 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 LEFT HIP: Total BMD is 0.920 g/cm2 T-score is -0.2 This is a 0.4% increase in comparison to prior exam which is notstatistically significant. Femoral neck BMD is 0.782 g/cm2 T-score is -0.6 FRAX: FRAX not reported due to T-scores of hip, femoral neck and/or spine beingat or above -1.0 (Normal). IMPRESSION: Normal bone mass REFERENCE: Bone mineral density: Normal (T-score above or = -1.0) Low bone mass (T-score between -1.0 and -2.5) replaces thepreviously used term osteopenia Osteoporosis (T-score = or below -2.5) Medical evaluation for secondary causes of low bone mineral density may be appropriate. FRAX is a World Health Organization validated fracture risk assessmenttool that calculates a person's 10 year probability of a major osteoporosisrelated fracture and hip fracture. According to the National OsteoporosisFoundation guidelines, postmenopausal women and men age 50 or older with low bonemass and a 10 year probability of a major osteoporosis related fracture = or greater than 20% or a 10 year probability of a hip fracture = or greaterthan 3% should be considered for treatment. For further information, including treatment recommendations, please referto the 2019 ISCD Official Positions (http://www.iscd.org) and the NOF's Clinician's Guide to Prevention and Treatment of Osteoporosis (http://www.nof.org/professionals/clinical-guidelines) THIS IS AN ELECTRONICALLY VERIFIED FINAL REPORT 04/10/2023 10:29 AM - Electronically signed by Luisa Mendoza M.D. TW: TW Report ID: [id number] Reading Location: [place] [address] us Rocio Benton MD IMG DXA PROCEDURES Final Res ult * Hepatitis panel, acute (04/27/2022 1:15 PM CDT) Hep A IgM Nonreactive Nonreactive [facility] (KIRSTEN) Comment: Interpretive Data: If Hep A IgM Ab is reported as Equivocal, a new sample should be drawn in two weeks for testing. Current interpretive data was last revised on 20. Testing performed by: [facility], [address] [place] [address]., [id number] Hep B core IgM Nonreactive Nonreactive [facility] ([place]IRSTEN) Comment: Interpretive Data If HepB Core IgM Ab is reported as Equivocal, a new sample should be drawn in two weeks for testing. Current interpretive data was last revised on 20. Testing performed by: [facility], [address] [place] [address]., [id number] Hep C Ab Nonreactive Nonreactive [facility] ([place]IRSTEN) Comment: Interpretive Data Nonreactive: Antibodies to HCV not detected. Does NOT exclude the possibility of recent exposure to HCV. Equivocal: Equivocal for HCV antibodies. Supplemental molecular testing will be automatically performed to determine infection status in accordance with current CDC screening recommendations. Reactive: Positive for HCV antibodies. This may represent current or past HCV infection. Supplemental molecular testing will be automatically performed to determine current infection status in accordance with current CDC screening recommendations. Interpretive data was last revised on 2020. Testing performed by: [facility], [address] [place] [address]., [id number] HepBsAg Nonreactive Nonreactive [facility] (KIRSTEN) Comment:Testing performed by : [facility], [address] [place] [address], [place]., [address] Blood 04/27/2022 1:15 PM CDT 04/27/2022 4:46 PM CDT Josh Giang MD LAB MICROBIOLOGY - GENERAL ORDERABLES Final Result [facility] (KIRSTEN) 1 [facility] [place] [address] from Last 3 Months or Most Recently Relevant to Health Maintenance Insurance MEDICARE [facility] MEDIC[place] [address] MEDICARE [facility] MEDICARE [facility] Address: [address] [address] [place] [address] AARP * Guarantor: DIDI RONQUILLO Account Type Relation to Patient Date of Phone Billing Address Personal/Family A[employer] AAR Advance Directives For more information, please contact: [phone] Documents on File Type Date Recorded Patient Delivery Mgr Expl anation ADVANCE DIRECTIVE 03/16/2022 11:43 AM POWER OF FOOD AND BEVERAGE LEAD-MEDICAL * Full Code (Latest Code Status on File) Date Activated Date Inactivated Comments 03/09/2022 1:12 PM 03/13/2022 7:41 PM Care Teams Conciliation Court Judge Relationship Specialty Start Date End Date Rocio Benton MD [address] [place] [phone] PCP - General Internal Medicine 02/07/19 Reji Sarabia OD [address] [place] [address] Optometry 07/20/19 [place] [address] [address] [place] [address] Surgeon Colon and Rectal Surgery 03/13/22 [place] [address] [address] [place] [address] Consulting Physician Gastroenterology 09/14/23 [place] [address] [place] [address] Consulting Physician Oncology 09/14/23 Parisa Lyn MD [address] [place] [address] [phone] Consulting Physician Obstetrics and Gynecology 09/14/23
--- OUTSIDE RECORDS SUMMARY | 2025-08-27 07:50 | XMS_ITS | Encounter Summary ---
Author Organization [facility] Address [address] [address] Care Team Providers Care Panel Monitor Name Role Phone Aziza Benton MD Primary Care Provider + [phone] Reji Sarabia OD Unavailable [phone] Tai Newman MD Unavailable [phone] Tiffanie Santana MD Unavailable [phone] Samantha Kyle MD Unavailable [phone] Josh Giang MD Unavailable Mike Garcia MD Unavailable Domingo Diana MD Unavailable [phone] Parisa Lyn MD Unavailable [phone] Encounter Details Date Type Department Care Team (Late st Contact Info) Description 04/20/2011 Orders Only [facility] Health Information Management [address] [place] [address] Scanning, Provider Social History Tobacco Use Types [...] Procedure Name Priority Date/Time Associated Diagnosis Comments GI - RESULT 04/20/2011 documented in this encounter Results * GI - RESULT (04/20/2011) Anatomical Region Laterality Modality Other us Provider Scanning Final Result documented in this encounter Visit Diagnoses Not on filedocumented in this encounter Care Teams Panel Monitor Relationship Specialty Start Date End Date Aziza Benton MD [address] [id number] PCP - General Internal Medicine 02/07/19 Reji Sarabia OD [address] [place] [address] [phone] Optometry 07/20/19 Tai Newman MD [address] [place] [address] [phone] Referring Physician Obstetrics and Gynecology 07/20/19 09/13/23 [place] [address] [place], [place] [phone] Consulting Physician Gastroenterology 01/07/22 3 [place] [address] [address] [place] [address] Surgeon Colon and Rectal Surgery 03/13/22 [place] [address] [address] [place] [address] Consulting Physician Medical Oncology 08/27/22 07/25/23 [place] [address] [place] [address] Consulting Physician Gastroenterology 09/14/23 [place] [address] [facility] [place] [address] Consulting Physician Oncology 09/14/23 Parisa Lyn MD [address] [place] [address] Consulting Physician Obstetrics and Gynecology 09/14/23 documented as of this encounter
--- OUTSIDE RECORDS SUMMARY | 2025-08-27 07:50 | XMS_ITS | Encounter Summary ---
Author Organization [facility] Care Team Providers Care Embedded Firmware Engineer Name Role Phone Aziza Benton MD Primary Care Provider + [phone] Reji Sarabia OD Unavailable [phone] Tai Newman MD Unavailable [phone] Tiffanie Santana MD Unavailable [phone] Samatnha Kyle MD Unavailable [phone] Josh Giang MD Unavailable [phone] Mike Garcia MD Unavailable Domingo Diana MD Unavailable [phone] Parisa Lyn MD Unavailable [phone] Encounter Details Date Type Department Care Team (Latest Contact Info) Description 07/16/2017 Orders Only [facility] CLINCONV ProviderKemal MD [address] [place] [address] Social History Tobacco Use Types Packs/Day Years [...] Procedure Name Priority Date/Time Associated Diagnosis Comments COLONOSCOPY - SCAN 07/16/2017 12 :00 AM CDT documented in this encounter Results * COLONOSCOPY - SCAN (07/16/2017 12:00 AM CDT) Narrative 07/16/2017 12:00 AM CDT Ordered by an unspecified provider. us Historical Provider Final Res ult documented in this encounter Visit Diagnoses Not on filedocumented in this encounter Care Teams Embedded Firmware Engineer Relationship Specialty Start Date End Date Aziza Benton MD [address] [place] [address] [id number] PCP - General Internal Medicine 02/07/19 Reji Sarabia OD [address] [place] [address] [phone] Optometry 07/20/19 Tai Newman MD [address] [place] [address] [phone] Referring Physician Obstetrics and Gynecology 07/20/19 09/13/23 [place] [address] [address] [facility] [address] [place] [address] Consulting Physician Gastroenterology 01/07/22 3 [place] [address] [address] [place] [address] Surgeon Colon and Rectal Surgery 03/13/22 [place] [address] [address] [place] [address] Consulting Physician Medical Oncology 08/27/22 07/25/23 [place] [address] [address] [facility] [address] [place] [address] Consulting Physician Gastroenterology 09/14/23 [place] [address] [facility] [place] [address] Consulting Physician Oncology 09/14/23 Parisa Lyn MD [address] [place] [address] Consulting Physician Obstetrics and Gynecology 09/14/23 documented as of this encounter
--- OUTSIDE RECORDS SUMMARY | 2025-08-27 07:50 | XMS_ITS | Encounter Summary ---
Author Organization [facility] Care Team Providers Care Position Classifier Name Role Phone Aziza Benton MD Primary Care Provider + [phone] Reji Sarabia OD Unavailable [phone] Tai Newman MD Unavailable [phone] Tiffanie Santana MD Unavailable [phone] Samantha Kyle MD Unavailable [phone] Josh Giang MD Unavailable [phone] Mike Garcia MD Unavailable Domingo Diana MD Unavailable [phone] Parisa Lyn MD Unavailable [phone] Encounter Details Date Type Department Care Team (Latest Contact Info) Description 06/03/2016 Orders Only [facility] CLINCONV ProviderKemal MD [address] [place] [address] Social History Tobacco Use Types Packs/Day [...] Date/Time Associated Diagnosis Comments SCAN - LABS 06/03/2016 12:00 AM CDT documented in this encounter Results * SCAN - LABS (06/03/2016 12:00 AM CDT) Narrative 06/03/2016 12:00 AM CDT Ordered by an unspecified provider. us Historical Provider Final Res ult documented in this encounter Visit Diagnoses Not on filedocumented in this encounter Care Teams Position Classifier Relationship Specialty Start Date End Date Aziza Benton MD [address] [place] [address] [phone] PCP - General Internal Medicine 02/07/19 Reji Sarabia OD [address] [place] [address] [phone] Optometry 07/20/19 Tai Newman MD [address] [place] [address] [phone] Referring Physician Obstetrics and Gynecology 07/20/19 09/13/23 [place] [address] [address] [facility] [address] [place] [address] Consulting Physician Gastroenterology 01/07/22 3 [place] [address] [address] [place] [address] Surgeon Colon and Rectal Surgery 03/13/22 [place] [address] [address] [place] [address] Consulting Physician Medical Oncology 08/27/22 07/25/23 [place] [address] [address] [place], [place] [phone] Consulting Physician Gastroenterology 09/14/[address] [place] [address] [facility] [place] [address] Consulting Physician Oncology 09/14/23 Parisa Lyn MD [address] [place] [address] Consulting Physician Obstetrics and Gynecology 09/14/23 documented as of this encounter
--- OUTSIDE RECORDS SUMMARY | 2025-08-27 07:50 | XMS_ITS | Encounter Summary ---
Author Organization [facility] Address [address] [place] [address] Phone Care Team Providers Care Certified Registered Locksmith Name Role Phone Aziza Benton MD Primary Care Provider + [phone] Reji Sarabia OD Unavailable [phone] Tai Newman MD Unavailable [phone] Tiffanie Santana MD Unavailable [phone] Samantha Kyle MD Unavailable [phone] Josh Giang MD Unavailable [phone] Mike Garcia MD Unavailable Domingo Diana MD Unavailable [phone] Parisa Lyn MD Unavailable [phone] Encounter Details Date Type Department Care Team (Late st Contact Info) Description 04/06/2022 Telephone [facility] Oncology [address] [facility] Advanced Medicine 7th [place] [address] [place] [address] Alexsandra Oviedo Social History Tobacco Use Types Packs/Day Years Used Date Smoking Tobacco: Never Smokeless Tobacco: Never Alcohol Use Standard Drinks/Week [...] How often do you attend chur or hindu services? More than 4 times per year 03/10/2022 Do you belong to any clubs o r organizations such as mormonism groups, unions, fraternal or athletic groups, or school groups? No 03/10/2022 How often do you attend meet ings of the clubs or organizations you belong to? Never 03/10/2022 Are you , , di vorced, , never , or living with a partner? 03/10/2022 AUDIT-C Answer Date Recorded Q1: How often do you have a drink containing alc ohol? 2-4 times a month 03/02/2022 Q2: How many drinks containi ng alcohol do you have on a typical day when you are drinking? 1 or 2 03/02/2022 Q3: How often do you have si x or more drinks on one occasion? Never 03/02/2022 Overall Financial Resource Strain (CARDIA) Answe r Date Recorded How hard is it for you to pa y for the very basics like food, housing, medical care, and heating? Not hard at all 03/10/2022 PHQ-2 Answer Date Recorded PHQ-2 Total Score (If total score is 3 or more points, staff should administer the PHQ-9) 0 08/27/2021 PRAPARE - Transportation Answer Date Re corded In the past 12 months, has l ack of transportation kept you from medical appointments or from getting medications? No 02/14 In the past 12 months, has l ack of transportation kept you from meetings, work, or from getting things needed for daily living? No 03/10/2022 Comments No Sex and Gender Information Value Date Recorded Sex Assigned at Not on file Legal Sex Female 7:15 PM CDT Gender Identity Not on file Sexual Orientation Not on file documented as of this encounter Plan of Treatment Not on file documented as of this encounter Visit Diagnoses Not on filedocumented in this encounter Care Teams Certified Registered Locksmith Relationship Specialty Start Date End Date Aziza Benton MD [address] [place] [address] PCP - General Internal Medicine 02/07/19 Reji Sarabia OD [address] [place] [phone] Optometry 07/20/19 Tai Newman MD [address] [place] [address] [phone] Referring Physician Obstetrics and Gynecology 07/20/19 09/13/23 [place] [address] [facility] [address] [place] [address] Consulting Physician Gastroenterology 01/07/22 3 [place] [address] [facility] [address] [place] [address] Surgeon Colon and Rectal Surgery 03/13/22 [place] [address] [facility] [address] [place] [address] Consulting Physician Medical Oncology 08/27/22 07/25/23 [place] [address] [facility] [address] [place] [address] Consulting Physician Gastroenterology 09/14/23 [place] [address] [facility] [place] [place] [address] Consulting Physician Oncology 09/14/[address] [facility] [address] Consulting Physician Obstetrics and Gynecology 09/14/23 documented as of this encounter
== END 2025-08-27 07:45 | disposition home or self-care (01) ==
LOC: ANHFOHIMG 07:47
PROVIDERS: PCP Internal Medicine; Visit Provider Internal Medicine
DX: Z12.31 Encounter for screening mammogram for malignant neoplasm of breast (principal)
CPT/HCPCS: 77063; 77067